=== PATIENT | male | born 1950 | race Caucasian/White ===

== ENCOUNTER 2017-04-01 08:00 | Emergency (ER) | payer MEDICARE, BC ==
[2017-04-01 08:00] VITALS: O2SAT 99
[2017-04-01 08:59] VITALS: PULSE 73; RESP 18; TEMP 97.5
[2017-04-01 09:14] VITALS: BP 164/103
== END 2017-04-01 09:24 | disposition home or self-care (01) | DRG 125 ==
LOC: ED 08:00
DX: H11.31 Conjunctival hemorrhage, right eye (principal)
CPT/HCPCS: 36415; 85610; 99282